=== PATIENT | male | born 1950 | race Caucasian/White ===

== ENCOUNTER 2016-11-28 19:05 | Observation (INO) | payer OTHER ==
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
[2016-11-28 19:53] LABS: % IMMATURE GRANULYOCYTES 0.5 % (0.0-1.1); ABSOLUTE IMMATURE GRANULOCYTES 0.04 10^3/uL (0.00-0.10); ADD DIFF? NO; ADD MORPH? NO; ADD SCAN? NO; ATYPICAL LYMPHOCYTE FLAG 30 (0-99); FRAGMENT RBC FLAG 0 (0-99); HEMATOCRIT 41.8 % (40.0-51.0); HEMOGLOBIN 14.2 g/dL (13.7-17.5); LEFT SHIFT FLG 0 (0-99); LIPEMIA HEMOLYSIS FLAG 90 (0-99); MEAN CELL HEMOGLOBIN 30.9 pg (27.9-34.1); MEAN CELL VOLUME 91.1 fL (81.5-99.8); MEAN PLATELET VOLUME 10.1 fL (8.7-11.7); PLATELET CLUMPS FLAG 0 (0-99); PLATELET COUNT 251 10^3/uL (150-400); RED BLOOD CELL COUNT 4.59 10^6/uL (4.40-6.38); RED CELL DISTRIBUTION WIDTH 13.3 % (11.5-15.2)
--- NOTE | 2016-11-28 19:56 | CPEKG ---
Heart Rate: 64 RR Interval: 938 P-R Interval: 176 QRSD Interval: 102 QT Interval: 436 QTC Interval: 450 P [place]: 51 QRS [place]: 21 T Wave [place]: 17 EKG Severity - NORMAL ECG - EKG Impression: SINUS RHYTHM Electronically Signed By: Kylee Birch 28-Nov-2016 20:09:02
[2016-11-28 20:07] LABS: ANION GAP 14 mEq/L (8-16); CALCIUM 9.7 mg/dL (8.5-10.4); CARBON DIOXIDE 24 mEq/l (22-31); CHLORIDE 102 mEq/L (97-110); CREATININE 1.1 mg/dL (0.7-1.3); GLOMERULAR FILTRATION RATE > 60; GLUCOSE 113 mg/dL (70-100); SODIUM 140 mEq/L (134-144)
[2016-11-28 20:18] LABS: TROPONIN I < 0.012 ng/mL (0-0.034)
[2016-11-28] MEDS ORDERED: ONDANSETRON 4 MG/2 ML VIAL IVP PRN (20:40)
[2016-11-28] MEDS ORDERED: ACETAMINOPHEN 325 MG TAB PO PRN (20:40)
[2016-11-28] MEDS ORDERED: ONDANSETRON DISINTEGRATING 4 MG TAB PO PRN (20:40)
[2016-11-28] MEDS ORDERED: NS 1,000 ML IV SCH (20:45)
[2016-11-28] MEDS ORDERED: IOPAMIDOL (ISOVUE 370) 100 ML BTL IV ONE (21:30)
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
[2016-11-28] MEDS ORDERED: HYDROCODONE/APAP 5/325 TAB PO PRN (21:49)
[2016-11-28] MEDS ORDERED: valACYclovir 500 MG TAB PO PRN (21:49)
[2016-11-28] MEDS ORDERED: LATANOPROST 0.005% 2.5 ML OPHT DROPS EACHEYE SCH (21:49)
[2016-11-29 04:35] LABS: APTT 26.6 SEC (23.0-38.0); INR 1.11 (0.83-1.16); PROTIME(PATIENT) 14.2 SEC (12.0-15.0)
[2016-11-29 04:46] LABS: ANION GAP 8 mEq/L (8-16); CALCIUM 9.1 mg/dL (8.5-10.4); CARBON DIOXIDE 25 mEq/l (22-31); CHLORIDE 106 mEq/L (97-110); GLOMERULAR FILTRATION RATE > 60; GLUCOSE 97 mg/dL (70-100); MAGNESIUM 2.2 mg/dL (1.6-2.3); POTASSIUM 4.6 mEq/L (3.5-5.2); SODIUM 139 mEq/L (134-144)
[2016-11-29 08:10] VITALS: TEMP 98.1
[2016-11-29] MEDS ORDERED: LANSOPRAZOLE SUSP 3 MG/ML UDSYR (Peds) PO SCH (09:00)
[2016-11-29] MEDS ORDERED: REGADENOSON 0.4 MG/5 ML SYR IVP ONE (09:31)
[2016-11-29] MEDS: OMEGA-3 FATTY ACIDS 1,000 MG CAP PO SCH ×2 (10:53→11:06)
[2016-11-29 11:07] VITALS: BP 153/96; PULSE 68; RESP 13; O2SAT 93
--- NOTE | 2016-11-29 12:16 | PDCARST ---
CAR Stress Test Results Type of Stress Test: Lexiscan stress test Indication: syncope Description of Procedure: After informed consent was obtained, pt was established to ECG, bp, oximetry, and HR monitor. At b/l, pt is in SR. BP, oximetry, and HR wnl. Pt was given Lexiscan with typical side effects. There were occasional PVCs noted. No ECG changes and normal BP and HR response to Lexiscan. Impression: Uneventful Lexiscan infusion. Conclusion: Await nuclear images.
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
== END 2016-11-29 13:48 | disposition home or self-care (01) ==
LOC: F2W 21:53
PROVIDERS: ADMIT Internal Medicine; ATTEND Hospitalist
DX: R55 Syncope and collapse (principal); S42.002A Fracture of unspecified part of left clavicle, initial encounter for closed fracture; S14.3XXA Injury of brachial plexus, initial encounter; I10 Essential (primary) hypertension; E78.5 Hyperlipidemia, unspecified; V18.0XXA Pedal cycle driver injured in noncollision transport accident in nontraffic accident, initial encounter; Y93.55 Activity, bike riding
CPT/HCPCS: 71020; 71275; 78452; 93005; 93017; 97166; 99285; A9500; G0378; G8987; G8988; J2785; Q9967

== ENCOUNTER 2016-12-02 05:31 | Day surgery (SDC) | payer OTHER ==
[2016-12-02] MEDS ORDERED: LIDOCAINE 1% 5 ML SDV ONE (05:40)
[2016-12-02] MEDS ORDERED: LIDOCAINE 1% 30 ML SDV ONE (06:35)
[2016-12-02] MEDS ORDERED: BUPIVACAINE 0.5% 30 ML SDV ONE (06:36)
[2016-12-02] MEDS ORDERED: ceFAZolin 2 GM/DEXTROSE 100 ML IV ONE (07:00)
[2016-12-02] MEDS ORDERED: PROPOFOL 200 MG/20 ML VIAL ONE (07:07)
[2016-12-02] MEDS ORDERED: fentaNYL 250 MCG/5 ML INJ ONE (07:07)
[2016-12-02] MEDS ORDERED: DEXAMETHASONE 4 MG/ML VIAL ONE (07:08)
[2016-12-02] MEDS ORDERED: ONDANSETRON 4 MG/2 ML VIAL ONE (07:08)
[2016-12-02] MEDS ORDERED: ROCURONIUM 50 MG/5 ML VIAL ONE (07:08)
[2016-12-02] MEDS ORDERED: MIDAZOLAM 2 MG/2 ML VIAL ONE (07:08)
[2016-12-02] MEDS ORDERED: LIDOCAINE 2% 5 ML SDV ONE (07:10)
[2016-12-02] MEDS ORDERED: PHENYLEPHRINE HCL 100 MCG/ML SYR ONE (07:36)
[2016-12-02] MEDS ORDERED: epHEDrine SULFATE 10 MG/ML SYR ONE ×2 (07:53→07:54)
[2016-12-02] MEDS ORDERED: KETOROLAC 30 MG/1 ML SDV ONE (08:50)
[2016-12-02] MEDS ORDERED: SUGAMMADEX SODIUM 200 MG/2 ML VIAL IVP ONE (08:50)
[2016-12-02] MEDS ORDERED: ENALAPRILAT DIHYDRATE 1.25 MG/ML VIAL ONE (08:55)
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
== END 2016-12-02 11:20 | disposition home or self-care (01) ==
LOC: FSGY 05:31
PROVIDERS: ATTEND Orthopaedic Surgery Hand Surgery
PROC: 0PSB04Z Reposition Left Clavicle with Internal Fixation Device, Open Approach (ICD-10-PCS; principal; 2016-12-02 07:15)
DX: S42.022A Displaced fracture of shaft of left clavicle, initial encounter for closed fracture (principal); S22.42XA Multiple fractures of ribs, left side, initial encounter for closed fracture; V18.4XXA Pedal cycle driver injured in noncollision transport accident in traffic accident, initial encounter; Y93.55 Activity, bike riding
CPT/HCPCS: C1713; J0690; J1100; J1885; J2250; J2370; J2405; J2704; J3010